=== PATIENT | female | born 1960 | race Caucasian/White ===

== ENCOUNTER 2022-12-09 14:20 | Emergency (ER) | payer MEDICARE ==
[2022-12-09 14:45] VITALS: BP 148/87; PULSE 76; O2SAT 98
--- NOTE | 2022-12-09 15:32 | XRAY ---
Indication: Pain and swelling following fall. Comparison: None 3 view left knee demonstrates osteopenia, mild medial joint space narrowing, and anterior soft tissue swelling. No other bony, articular, or soft tissue abnormalities.
--- NOTE | 2022-12-09 16:23 | ERPHSYRPT ---
- History of Present Illness Time Seen by Provider: 12/09/22 16:26 Source: patient Exam Limitations: no limitations Patient Subjective Stated Complaint: Left knee pain Triage Nursing Assessment: Patient brought back to ED per w/c and transferred to bed per self. Patient A+O X 3. Patient's skin pink, warm and dry. Patient complains of left knee pain after falling. Patient states he has a hx of MS and falls a lot. Patient states she was walking across her living room and fell landing on left knee. Patient's left knee noted to be swollen and bruised. Patient complains of left knee pain /, but when ambulating 03/28. Physician History: Patient is 62-year-old female history of multiple sclerosis experiences recurrent fall because of the multiple sclerosis presents to our ED today for evaluation of pain to her left knee. Patient fell today and is now experiencing swelling and pain of her left knee. Patient concerned for possible fracture. No other injuries. No BHT or LOC. No neck pain. Cervical spine cleared clinically. Pain described as an ache that is localized. Pain worse with flexion of the left knee on palpation. Pain improves with rest. Patient declined pain medication. Significant other at bedside. They voiced no other complaints or concerns at this time. Patient declined pain medication Portions of this note were created with voice recognition technology. There may be grammatical, spelling, punctuation or sound alike errors Method of Injury: fell Occurred: just prior to arrival Quality: constant Severity of Pain-Max: moderate Severity of Pain-Current: mild Lower Extremities Pain: knee: left Modifying Factors: Improves With: other (Movement and palpation) Associated Symptoms: none Allergies/Adverse Reactions: No Known Drug Allergies Allergy (Unverified 12/09/22 14:30) Hx Influenza Vaccination/Date Given: No Hx Pneumococcal Vaccination/Date Given: No Immunizations Up to Date: Yes Travel Risk - International Travel Have you traveled outside of the country in past 3 weeks: No - Coronavirus Screening Are you exhibiting any of the following symptoms?: No Close contact with a COVID-19 positive Pt in past 14-21 Days: No - Vaccine Status Have you recieved a Covid-19 vaccination: Yes Senior Underwriter: Moderna - Vaccination Dates Date of 2cond Vaccination (if applicable): na - Review of Systems Constitutional: No Symptoms, No Fever, No Chills Eyes: No Symptoms Ears, Nose, & Throat: No Symptoms Respiratory: No Symptoms, No Cough, No Dyspnea Cardiac: No Symptoms, No Chest Pain, No Edema, No Syncope Abdominal/Gastrointestinal: No Symptoms, No Abdominal Pain, No Nausea, No Vomiting, No Diarrhea Genitourinary Symptoms: No Symptoms, No Dysuria Musculoskeletal: No Symptoms, No Back Pain, No Neck Pain Skin: No Symptoms, No Rash Neurological: No Symptoms, No Dizziness, No Focal Weakness, No Sensory Changes Psychological: No Symptoms Endocrine: No Symptoms Hematologic/Lymphatic: No Symptoms Immunological/Allergic: No Symptoms All Other Systems: Reviewed and Negative - Past Medical History Pertinent Past Medical History: Yes Neurological History: Other ENT History: No Pertinent History Cardiac History: Hypertension Respiratory History: COPD Endocrine Medical History: No Pertinent History Musculoskeletal History: No Pertinent History GI Medical History: No Pertinent History History: No Pertinent History Psycho-Social History: No Pertinent History Female Reproductive Disorders: No Pertinent History Other Medical History: MS since 2008 - Past Surgical History Past Surgical History: Yes Neuro Surgical History: No Pertinent History Cardiac: No Pertinent History Respiratory: No Pertinent History Gastrointestinal: No Pertinent History Genitourinary: No Pertinent History Musculoskeletal: Orthopedic Surgery Female Surgical History: Tubal Ligation Other Surgical History: Left hand 5th digit. Sinus surgery - Social History Smoking Status: Never smoker Exposure to second hand smoke: Yes Drug Use: none Patient Lives Alone: No - Nursing Vital Signs Nursing Vital Signs: Initial Vital Signs Temperature 97.9 F 12/09/22 14:31 Pulse Rate 76 12/09/22 14:31 Respiratory Rate 18 12/09/22 14:31 Blood Pressure 148/87 12/09/22 14:31 O2 Sat by Pulse Oximetry 98 12/09/22 14:31 Pain Scale Pain Intensity 1 - Physical Exam General Appearance: no apparent distress, alert Eyes, Ears, Nose, Throat Exam: normal ENT inspection, TMs normal, pharynx normal, moist mucous membranes Neck Exam: non-tender, supple Cardiovascular/Respiratory Exam: chest non-tender, normal breath sounds, regular rate/rhythm, no respiratory distress Gastrointestinal/Abdominal Exam: non-tender, guarding Back Exam: normal inspection, No vertebral tenderness Hips Exam: bilateral: non-tender, normal inspection, normal range of motion, no evidence of injury Legs Exam: bilateral leg: non-tender, normal inspection, normal range of motion, no evidence of injury Knees Exam: left knee: soft tissue tenderness, swelling, other (Involved extremity is neurovascular tact distally. Compartments are soft. Cap refill less than 2 seconds.) Ankle Exam: bilateral ankle: non-tender, normal inspection, normal range of motion, no evidence of injury Foot Exam: bilateral foot: non-tender, normal inspection, normal range of motion, no evidence of injury Neuro/Tendon Exam: normal sensation, normal motor functions Mental Status Exam: alert, oriented x 3, cooperative Skin Exam: normal color, warm, dry SpO2 Interpretation: normal SpO2: 98 O2 Delivery: Room Air - Course Nursing assessment & vital signs reviewed: Yes - Radiology Exams Knee X-ray Interpretation: Teleradiologist Report (Osteopenia. Soft tissue swelling. No fracture or dislocation.) Ordered Tests: Active Orders 24 hr Category Date Time Status KNEE (3 VIEWS) Stat Exams 12/09/22 14:40 Completed - Progress Progress: improved Progress Note: Patient is a 62-year-old female with history of MS and recurrent falls presents to our ED with left knee pain. Patient fell at home. Patient attributes her fall to her poor coordination and chronic leg weakness due to her MS. Patient arrived via private vehicle. Physical exam reveals a swollen left knee. There is a very superficial abrasion however ligaments appear to be stable and intact. Extremity is neurovascular intact distally. Complexity of problems addressed to his minimal. Patient's problem is straightforward. no critical care time. Complexity of data reviewed is limited. X-ray ordered. X-ray chest reviewed. Patient served as an independent historian. There is no discussion of test interpretation. No independent interpretation of the imaging study required. State CODA level and why. testing ordered (labs/EKG/imaging). Number of imaging studies. Results obtained/reviewed/analyzed and that results used in MDM. State if patient is independent historian. Any outside documents reviewed. Any independent interpretation of tests/imaging/EKG. Discussion of tests results and management with outside provider Risk of complication and or risk of morbidity and mortality of patient managemen t is minimal. Patient received a cold pack and an Uri wrap. Patient declined pain medication. Patient referred to orthopedic for further evaluation and treatment. Patient has a wheelchair at home. Patient will be discharged home. Level of the M service provided was straightforward. Patient's significant other at bedside. They voiced no other complaints or concerns at this time. Portions of this note were created with voice recognition technology. There may be grammatical, spelling, punctuation or sound alike errors 12/09/22 16:32 Counseled pt/family regarding: diagnosis, need for follow-up, rad results - Departure Departure Disposition: Home Clinical Impression: Fall Condition: Stable Critical Care Time: No Referrals: MAHESH MCRAE [Primary Care Provider] - Follow up/PCP as directed Additional Instructions: Discharge/Care Plan [facility] was seen on 12/09/22 in the Emergency Room. The patient was counseled regarding Diagnosis,Lab results, Imaging studies, need for follow up and when to return to the Emergency Room. Prescriptions given: Discharge Note I have spoken with the patient and/or caregivers. I have explained the patient's condition, diagnosis and treatment plan based on the information available to me at this time. I have answered the patient's and/or caregiver's questions and addressed any concerns. The patient and/or caregivers have as good understanding of the patient's diagnosis, condition and treatment plan as can be expected at this point. The vital signs have been stable. The patient's condition is stable and appropriate for discharge from the emergency department. The patient will pursue further outpatient evaluation with the primary care physician or other designated or consulting physician as outlined in the discharge instructions. The patient and/or caregivers are agreeable to this plan of care and follow-up instructions have been explained in detail. The patient and/or caregivers have received these instruction. The patient/and or caregivers are aware that any significant change in condition or worsening of symptoms should prompt an immediate return to this or the closest emergency department or call 911. Outpatient Orders: Ortho Referral Time Frame: 1 Day, Facility: [facility], Location: [facility]
== END 2022-12-09 16:53 | disposition home or self-care (01) ==
LOC: ED 14:20
DX: Z04.3 Encounter for examination and observation following other accident (principal); M25.562 Pain in left knee; G35 Multiple sclerosis; I10 Essential (primary) hypertension
CPT/HCPCS: 73562; 99282